=== PATIENT | female | born 1990 | race African-American/Black ===

== ENCOUNTER 2024-03-10 17:10 | Inpatient (IN) | payer OTHER, BC ==
[2024-03-10 18:20] VITALS: BMI 41.3
[2024-03-10] MEDS ORDERED: OXYTOCIN 30 UNITS in 0.9% NS 30 UNIT/500 ML INFUS.BAG IVPB ONE (18:21)
[2024-03-10 18:24] LABS: BASO % 0.5 % (0-2.0); EOS % 1.2 % (0-4.5); HEMATOCRIT 35.2 % (32.4-45.2); HEMOGLOBIN 11.5 GM/dL (10.7-15.3); LYMPH % 27.2 % (8-40); MCHC 32.6 g/dl (32.0-36.0); MEAN CELL VOLUME 82.8 fl (80-96); MEAN PLT VOLUME 8.9 fl (7.5-11.1); MONO % 7.3 % (3.8-10.2); NEUT % 63.8 % (42.8-82.8); PLATELET COUNT 291 10^3/uL (134-434); RBC 4.25 M/mm3 (3.60-5.2); RDW 16.4 % (11.6-15.6)
[2024-03-10] MEDS: OXYTOCIN 30 UNITS in 0.9% NS 30 UNIT/500 ML INFUS.BAG IVPB SCH (18:30)
[2024-03-10 18:34] LABS: INR 0.9 (0.83-1.09); PROTHROMBIN TIME (PATIENT) 10.2 SEC (9.7-13.0)
[2024-03-10 18:37] LABS: ACTIVATED PTT 28.5 SECONDS (25.2-36.5)
[2024-03-10 18:45] LABS: POTASSIUM 4.3 mmol/L (3.5-5.1)
[2024-03-10 18:47] LABS: CALCIUM 9.4 mg/dL (8.5-10.1)
[2024-03-10 18:48] LABS: BLOOD UREA NITROGEN 5.9 mg/dL (7-18)
[2024-03-10] MEDS: ELECTROLYTE-148 SOLN 1,000 ML IV SCH (18:48)
[2024-03-10 18:51] LABS: CREATININE 0.6 mg/dL (0.55-1.3)
[2024-03-10] MEDS ORDERED: FENTANYL/BUPIVACAINE/NS/PF - PCEA - 50 ML DISP.SYRIN EP ONE (23:54)
[2024-03-11] MEDS: FENTANYL/BUPIVACAINE/NS/PF - PCEA - 50 ML DISP.SYRIN EP SCH (01:00)
[2024-03-11] MEDS ORDERED: NALOXONE HCL 0.4 MG/ML VIAL IVPUSH PRN (01:16)
[2024-03-11] MEDS ORDERED: FENTANYL/BUPIVACAINE/NS/PF - PCEA - 50 ML DISP.SYRIN EP ONE ×2 (05:09→09:09)
[2024-03-11] MEDS ORDERED: OXYTOCIN 30 UNITS in 0.9% NS 30 UNIT/500 ML INFUS.BAG IVPB ONE (08:06)
[2024-03-11] MEDS ORDERED: AMPICILLIN SODIUM 2 GM VIAL ONE (08:06)
[2024-03-11] MEDS: AMPICILLIN - 2 GM in SODIUM CHLORIDE 100 ML IVPB ONE (08:11)
[2024-03-11] MEDS ORDERED: AMPICILLIN SODIUM 1 GM VIAL ONE (12:06)
[2024-03-11] MEDS: AMPICILLIN - 1 GM in SODIUM CHLORIDE 100 ML IVPB SCH (12:10)
[2024-03-11] MEDS ORDERED: ACETAMINOPHEN 325 MG TABLET (FP) PO PRN (12:39)
[2024-03-11] MEDS ORDERED: IBUPROFEN 600 MG TABLET (FP) PO PRN (12:39)
[2024-03-11] MEDS: CITRIC ACID/SODIUM CITRATE 30 ML UNIT-DOSE CUP PO ONE (12:45)
[2024-03-11] MEDS ORDERED: PHENYLEPHRINE HCL 10 MG/1 ML SINGLE DOSE VIAL ONE (12:48)
[2024-03-11] MEDS ORDERED: morphine SULFATE/PF 1 MG/2 ML (2cc Syringe - QUVA) ONE (12:48)
[2024-03-11] MEDS ORDERED: ceFAZolin SODIUM 1 GM VIAL ONE (12:48)
[2024-03-11] MEDS ORDERED: OXYTOCIN 20 UNITS in 0.9% NS 20 UNIT/1,000 ML INFUS.BAG IV ONE ×2 (13:28→15:07)
[2024-03-11 14:03] LABS: CORD BASE EXCESS -3.8 mmol/L (0-2); CORD HCO3 21.2 mmHg (20-29); CORD PCO2 38.9 mmHg (30-78); CORD pH 7.355 (7.14-7.44)
[2024-03-11] MEDS ORDERED: METHYLERGONOVINE MALEATE 0.2 MG/1 ML AMP IM PRN (14:05)
[2024-03-11] MEDS ORDERED: OXYTOCIN 10 UNITS/ML VIAL ONE (14:08)
[2024-03-11] MEDS ORDERED: IBUPROFEN (CALDOLOR) 800 MG/200 ML PREMIX BAGS IVPB ONE (14:56)
[2024-03-11] MEDS: IBUPROFEN 800 MG/8 ML IJ IVPB PRN (15:04)
[2024-03-11] MEDS: OXYTOCIN 20 UNITS in 0.9% NS 20 UNIT/1,000 ML INFUS.BAG IV SCH (15:37)
[2024-03-11] MEDS: morphine SULFATE/PF 1 MG/2 ML (2cc Syringe - QUVA) EP ONE (16:09)
[2024-03-11 16:55] VITALS: RESP 18
[2024-03-11] MEDS: CEFAZOLIN 2 GM/D5W 2 GM/50 ML ML IVPB SCH ×2 (17:32→20:23)
[2024-03-11] MEDS: ONDANSETRON 4 MG/2 ML VIAL IVPUSH PRN (23:08)
[2024-03-11] MEDS: SIMETHICONE 80 MG TAB.CHEW (FP) PO PRN (23:11)
[2024-03-12] MEDS ORDERED: oxyCODONE HCL 5 MG TABLET PO PRN ×2 (02:06)
[2024-03-12 07:46] LABS: BASO % 0.1 % (0-2.0); EOS % 0.5 % (0-4.5); HEMATOCRIT 31.5 % (32.4-45.2); HEMOGLOBIN 10.3 GM/dL (10.7-15.3); LYMPH % 18.9 % (8-40); MCH 27.1 pg (25.7-33.7); MCHC 32.8 g/dl (32.0-36.0); MEAN CELL VOLUME 82.5 fl (80-96); MEAN PLT VOLUME 8.7 fl (7.5-11.1); MONO % 7.3 % (3.8-10.2); NEUT % 73.2 % (42.8-82.8); PLATELET COUNT 240 10^3/uL (134-434); RBC 3.82 M/mm3 (3.60-5.2); RDW 16.1 % (11.6-15.6); WHITE BLOOD COUNT 15.9 K/mm3 (4.0-10.0)
[2024-03-12] MEDS: ENOXAPARIN NA (PORCINE) 40 MG/0.4 ML DISP.SYRIN SQ SCH (09:38)
[2024-03-12] MEDS ORDERED: BISACODYL 10 MG SUPP.RECT RC PRN (14:06)
[2024-03-12] MEDS: ACETAMINOPHEN 325 MG TABLET (FP) PO PRN (19:58)
[2024-03-13] MEDS: IBUPROFEN 600 MG TABLET (FP) PO PRN (00:49)
[2024-03-13 20:35] VITALS: TEMP 98
[2024-03-14 07:10] LABS: BASO % 0.5 % (0-2.0); EOS % 1.9 % (0-4.5); HEMATOCRIT 29.8 % (32.4-45.2); HEMOGLOBIN 9.9 GM/dL (10.7-15.3); MCH 27.5 pg (25.7-33.7); MCHC 33.4 g/dl (32.0-36.0); MEAN CELL VOLUME 82.5 fl (80-96); MEAN PLT VOLUME 8.6 fl (7.5-11.1); MONO % 6.1 % (3.8-10.2); NEUT % 65.5 % (42.8-82.8); PLATELET COUNT 262 10^3/uL (134-434); RBC 3.61 M/mm3 (3.60-5.2); RDW 16.4 % (11.6-15.6); WHITE BLOOD COUNT 13.7 K/mm3 (4.0-10.0)
[2024-03-14 10:32] VITALS: BP 107/71; PULSE 81
[2024-03-16 14:21] LABS: POC NITRAZINE POS
== END 2024-03-14 10:55 | disposition home or self-care (01) | DRG 788 ==
LOC: JLDR 17:10 → J3W 03-11 16:33
PROVIDERS: ADMIT Obstetrics & Gynecology; ATTEND Obstetrics & Gynecology
PROC: 10D00Z1 Extraction of Products of Conception, Low, Open Approach (ICD-10-PCS; principal; 2024-03-11)
DX: O62.0 Primary inadequate contractions (principal); O36.5930 Maternal care for other known or suspected poor fetal growth, third trimester, not applicable or unspecified; O69.81X0 Labor and delivery complicated by cord around neck, without compression, not applicable or unspecified; Z3A.38 38 weeks gestation of pregnancy; Z37.0 Single live birth
CPT/HCPCS: 36415; 36600; 80048; 82803; 83986-QW; 85025; 85610; 85730; 86780; 86850; 86900; 86901; 88307-TC; 94010